=== PATIENT | male | born 1960 | race Caucasian/White ===

== ENCOUNTER 2019-01-16 14:13 | Inpatient (IN) ==
[2019-01-16 15:16] LABS: Baso % (Auto) 0.3 % (0.0-2.0); Eos # (Auto) 0.1 th/mm3 (0.0-0.4); Eos % (Auto) 1.4 % (0.0-4.0); Hematocrit 36.7 % (39.0-51.0); Lymph # (Auto) 1.6 th/mm3 (1.0-4.8); Lymph % (Auto) 20.8 % (9.0-44.0); Mean Corpuscular HGB Conc 32.6 % (32.0-36.0); Mean Corpuscular Hemoglobin 31.4 pg (27.0-34.0); Mean Corpuscular Volume 96.2 fL (80.0-100.0); Mean Platelet Volume 8.2 fL (7.0-11.0); Mono # (Auto) 0.8 th/mm3 (0.0-0.9); Mono % (Auto) 10.3 % (0.0-8.0); Neut # (Auto) 5.1 th/mm3 (1.8-7.7); Neut % (Auto) 67.2 % (16.0-70.0); Platelet Count 248 th/mm3 (150-450); Red Blood Count 3.82 mil/mm3 (4.50-5.90); Red Cell Distribution Width 16.2 % (11.6-17.2); White Blood Count 7.6 th/mm3 (4.0-11.0)
[2019-01-16 15:24] LABS: Activated Partial Thrombo Time 28.9 sec (23.4-31.7); INR 1.1 Ratio; Prothrombin Time 11.6 sec (9.8-11.6)
[2019-01-16 15:41] LABS: Alanine Aminotransferase 11 U/L (12-78); Alkaline Phosphatase 75 U/L (45-117); Total Protein 7.8 g/dL (6.4-8.2)
[2019-01-16 15:46] LABS: Albumin 3.3 g/dL (3.4-5.0); Anion Gap 12 meq/L (5-15); Aspartate Aminotransferase 22 U/L (15-37); Blood Urea Nitrogen 12 mg/dL (7-18); Calcium 7.8 mg/dL (8.5-10.1); Carbon Dioxide 24.2 meq/L (21.0-32.0); Chloride 101 meq/L (98-107); Glomerular Filtration Rate 84 mL/min (>89); Glucose,Random 73 mg/dL (74-106); Lipase 282 U/L (73-393); Magnesium 1.1 mg/dL (1.5-2.5); Potassium 3.7 meq/L (3.5-5.1); Sodium 137 meq/L (136-145)
[2019-01-16 15:49] LABS: Alcohol 193 mg/dL (0-5)
--- NOTE | 2019-01-16 15:54 | XR ---
EXAM DATE: 01/16/2019 3:50 PM EST AGE/SEX: 58 years / Male INDICATIONS: Chest Pain CLINICAL DATA: This is the patient's initial encounter. Patient reports that signs and symptoms have been present for 1 day and indicates a pain score of 4/10. MEDICAL/SURGICAL HISTORY: None. None. COMPARISON: [facility] [place], CHEST 1V SINGLE AP, 12/20/2018. [facility] [place], CT CHEST W CONTRAST, 12/20/2018. . FINDINGS: A single AP view of the chest demonstrates biapical densities with cavitation. Lower lobes are clear. Heart normal in size The cardiomediastinal contours are unremarkable. Osseous structures are intact . CONCLUSION: Chronic appearing bilateral upper lobe cavitary densities greater in the right apex but unchanged. Electronically signed by: Juan Lau MD Board Certified Radiologist 01/16/2019 3:53 PM EST
--- NOTE | 2019-01-16 16:07 | ECG ---
Date Performed: 01/16/2019 Time Performed: 14:37:44 PTAGE: 58 years EKG: ATRIAL FIBRILLATION WITH RAPID VENTRICULAR RESPONSE POSSIBLE RIGHT VENTRICULAR CONDUCTION D ELAY ABNORMAL RHYTHM ECG Compared to prior electrocardiogram, R wave progression has normalized. PREVIOUS TRACING : 12/28/2018 16.10 DOCTOR: João Davis Interpretating Date/Time 01/16/2019 16:06:19
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
--- NOTE | 2019-01-16 16:51 | CT ---
EXAM DATE: 01/16/2019 4:43 PM EST AGE/SEX: 58 years / Male INDICATIONS: Diffuse abdomen pain today. CLINICAL DATA: This is the patient's initial encounter. Patient reports that signs and symptoms have been present for 1 day and indicates a pain score of 7/10. MEDICAL/SURGICAL HISTORY: Chronic obstructive pulmonary disease. . hernia repair ORAL CONTRAST: No oral contrast ingested. RADIATION DOSE: 5.29 CTDI (mGy) COMPARISON: [facility] [place], CT PELVIS W/O CONTRAST, 12/23/2018. . TECHNIQUE: Multiple contiguous axial images were obtained through the abdomen and pelvis following b olus infusion of 96 ml Omnipaque 350 (iohexol) nonionic water-soluble contrast as a single exam dos e. No oral contrast ingested. Using automated exposure control and adjustment of the mA and/or kV ac cording to patient size, radiation dose was kept as low as reasonably achievable to obtain optimal di agnostic quality images. DICOM format image data is available electronically for review and comparis on. FINDINGS: Lower Lungs: The visualized lower lungs are clear. Liver: The liver has a homogeneous density without space-occupying lesion. There is no dilation of th e biliary tree. Spleen: Homogeneous density without enlargement. Pancreas: Unremarkable without mass or calcification. Kidneys: Normal in size and shape. No evidence of mass or hydronephrosis. Bilateral renal low-densit ies likely cysts. Adrenal Glands: Unremarkable. Aorta: Atherosclerotic changes without aneurysmal dilation. Bowel/Mesentery: Wall thickening and slight inflammatory changes of the rectosigmoid colon. Small ap parent tract between the sigmoid colon and urinary bladder with some air seen. There is scattered div erticulosis. Abdominal Wall: Mesh placement. No hernia along the anterior abdominal wall. Retroperitoneum: No evidence of adenopathy in the retrocrural, para-aortic, or deep pelvic regions. Bladder: Distended urinary bladder with posterior wall thickening. Reproductive Organs: No abnormal masses or calcifications seen. Inguinal: The inguinal region is unremarkable without evidence of adenopathy. Bony Structures: Unremarkable. CONCLUSION: 1. Distended urinary bladder with wall thickening posteriorly. 2. Inflammatory changes involving the sigmoid colon with possible fistula between the sigmoid colon and urinary bladder. 3. Bilateral renal cysts. Electronically signed by: Juan Lau MD Board Certified Radiologist 01/16/2019 4:49 PM EST
[2019-01-16] MEDS ORDERED: Piperacil/Tazo 3.375 GM Premix 3.375 GM/50 ML PIGGYBACK IV.SIG ONE (17:34)
[2019-01-16] MEDS ORDERED: Acetaminophen 325 MG Tablet PO PRN (17:42)
[2019-01-16] MEDS ORDERED: Bisacodyl 10 MG Supp RECTAL PRN (17:42)
[2019-01-16 18:00] LABS: Bilirubin,Urine Negative (Negative); Clarity,Urine Clear (Clear); Color,Urine Straw (Yellw/Straw); Glucose,Urine (UA) Negative (Negative); Leukocyte Esterase,Urine Negative (Negative); Nitrite,Urine Negative (Negative); Specific Gravity,Urine 1.006 (1.002-1.035)
[2019-01-16] MEDS ORDERED: Haloperidol Inj 5 MG/ML Ampul IV.PUSH PRN (18:13)
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
[2019-01-16] MEDS: Sod Chloride 0.9% Inj 1,000 ML IV.CONT SCH ×2 (18:20→20:48)
[2019-01-16] MEDS: Enoxaparin Inj 40 MG/0.4 ML Syringe SQ SCH (18:52)
[2019-01-16] MEDS ORDERED: Mag Sulf 1 gm/100 ml Premix 100 ML IV.SIG ONE (19:00)
[2019-01-16] MEDS ORDERED: Mag Sulf 1 gm/100 ml Premix 100 ML IV.SIG SCH (20:00)
[2019-01-16] MEDS: Morphine Inj 4 MG/ML Vial IV.PUSH PRN (20:42)
[2019-01-16] MEDS: Metoprolol Tartrate 25 MG Tablet PO SCH (20:43)
[2019-01-16] MEDS: Senna/Docusate Sodium 8.6/50 MG Tablet PO SCH (22:40)
[2019-01-17] MEDS: Piperacil/Tazo 3.375 GM Premix 3.375 GM/50 ML PIGGYBACK IV.SIG SCH ×4 (00:31→18:10)
[2019-01-17] MEDS: Morphine Inj 4 MG/ML Vial IV.PUSH PRN ×3 (03:47→18:03)
[2019-01-17] MEDS: Sod Chloride 0.9% Inj 1,000 ML IV.CONT SCH ×2 (06:12→15:31)
[2019-01-17 08:14] LABS: Baso # (Auto) 0.1 th/mm3 (0.0-0.2); Baso % (Auto) 1.3 % (0.0-2.0); Eos # (Auto) 0.4 th/mm3 (0.0-0.4); Eos % (Auto) 3.5 % (0.0-4.0); Hematocrit 38.9 % (39.0-51.0); Hemoglobin 13.2 gm/dL (13.0-17.0); Lymph # (Auto) 1.9 th/mm3 (1.0-4.8); Lymph % (Auto) 18.7 % (9.0-44.0); Mean Corpuscular HGB Conc 33.9 % (32.0-36.0); Mean Corpuscular Hemoglobin 32.1 pg (27.0-34.0); Mean Corpuscular Volume 94.6 fL (80.0-100.0); Mean Platelet Volume 8.7 fL (7.0-11.0); Mono % (Auto) 9.5 % (0.0-8.0); Neut # (Auto) 6.8 th/mm3 (1.8-7.7); Platelet Count 219 th/mm3 (150-450); Red Blood Count 4.12 mil/mm3 (4.50-5.90); Red Cell Distribution Width 15.8 % (11.6-17.2); White Blood Count 10.2 th/mm3 (4.0-11.0)
[2019-01-17 08:33] LABS: Anion Gap 8 meq/L (5-15); Blood Urea Nitrogen 11 mg/dL (7-18); Calcium 7.6 mg/dL (8.5-10.1); Carbon Dioxide 27.2 meq/L (21.0-32.0); Chloride 104 meq/L (98-107); Glomerular Filtration Rate Greater Than 89 mL/min (>89); Glucose,Random 79 mg/dL (74-106); Magnesium 1.4 mg/dL (1.5-2.5); Potassium 3.4 meq/L (3.5-5.1); Sodium 139 meq/L (136-145)
[2019-01-17] MEDS: Metoprolol Tartrate 25 MG Tablet PO SCH ×2 (09:13→20:32)
[2019-01-17] MEDS: Senna/Docusate Sodium 8.6/50 MG Tablet PO SCH ×2 (09:13→20:32)
[2019-01-17] MEDS: Lisinopril 20 MG Tablet PO SCH (09:13)
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
[2019-01-17] MEDS ORDERED: Mag Sulf 1 gm/100 ml Premix 100 ML IV.SIG ONE (10:15)
--- NOTE | 2019-01-17 10:23 | P.PNCS ---
Subjective Interval history: Diverticulitis with possible colovesical fistula painful Objective Result Diagrams: 01/17/19 07:30 01/17/19 07:30 Objective Remarks: Abdomen soft, nondistended, mild diffuse tenderness Assessment and Plan - Assessment (1) Diverticulitis Code(s): K57.92 - Diverticulitis of intestine, part unspecified, without perforation or abscess without bleeding Status: Acute - Plan Consult dictated and on chart Patient needs to be set up for acute treatment of his diverticulitis He will likely need interval colectomy in 8-12 weeks If however, he is not able to complete acute treatment and needs more urgent surgery, I will not be able to complete this in a minimally invasive fashion and he will most likely need a temporary colostomy with second surgery for reanastomosis. I will follow along with you while patient is hospitalized and see him in the office after discharge.
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
[2019-01-17] MEDS: LORazepam 1 MG Tablet PO PRN (15:30)
[2019-01-17] MEDS: Enoxaparin Inj 40 MG/0.4 ML Syringe SQ SCH (18:06)
[2019-01-18] MEDS: Morphine Inj 4 MG/ML Vial IV.PUSH PRN ×5 (00:17→23:02)
[2019-01-18] MEDS: Piperacil/Tazo 3.375 GM Premix 3.375 GM/50 ML PIGGYBACK IV.SIG SCH ×5 (00:19→23:47)
[2019-01-18] MEDS: Sod Chloride 0.9% Inj 1,000 ML IV.CONT SCH ×4 (00:31→23:47)
[2019-01-18] MEDS: Senna/Docusate Sodium 8.6/50 MG Tablet PO SCH ×2 (09:12→20:08)
[2019-01-18] MEDS: LORazepam 1 MG Tablet PO PRN (09:12)
[2019-01-18] MEDS: Metoprolol Tartrate 25 MG Tablet PO SCH ×2 (09:12→20:00)
[2019-01-18] MEDS: Lisinopril 20 MG Tablet PO SCH (09:12)
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
[2019-01-18] MEDS ORDERED: Potassium Chloride 10 MEQ ER Capsule PO ONE (14:25)
[2019-01-18] MEDS: Magnesium Oxide 400 MG Tablet PO SCH (14:51)
[2019-01-18] MEDS: Enoxaparin Inj 40 MG/0.4 ML Syringe SQ SCH (17:26)
[2019-01-19] MEDS: Morphine Inj 4 MG/ML Vial IV.PUSH PRN ×2 (04:34→20:14)
[2019-01-19] MEDS: Piperacil/Tazo 3.375 GM Premix 3.375 GM/50 ML PIGGYBACK IV.SIG SCH ×3 (05:06→18:21)
[2019-01-19] MEDS: Sod Chloride 0.9% Inj 1,000 ML IV.CONT SCH (05:55)
[2019-01-19] MEDS: LORazepam 1 MG Tablet PO PRN ×2 (08:53→18:22)
[2019-01-19] MEDS: Magnesium Oxide 400 MG Tablet PO SCH (08:56)
[2019-01-19] MEDS: Senna/Docusate Sodium 8.6/50 MG Tablet PO SCH ×2 (08:56→20:14)
[2019-01-19] MEDS: Lisinopril 20 MG Tablet PO SCH (08:56)
[2019-01-19] MEDS: Metoprolol Tartrate 25 MG Tablet PO SCH (08:56)
[2019-01-19 09:08] LABS: Baso % (Auto) 0.5 % (0.0-2.0); Eos # (Auto) 0.5 th/mm3 (0.0-0.4); Eos % (Auto) 6.1 % (0.0-4.0); Hematocrit 34.4 % (39.0-51.0); Hemoglobin 11.4 gm/dL (13.0-17.0); Lymph # (Auto) 1.5 th/mm3 (1.0-4.8); Lymph % (Auto) 18.6 % (9.0-44.0); Mean Corpuscular Hemoglobin 32.4 pg (27.0-34.0); Mean Platelet Volume 9.2 fL (7.0-11.0); Mono # (Auto) 0.8 th/mm3 (0.0-0.9); Mono % (Auto) 9.4 % (0.0-8.0); Neut # (Auto) 5.4 th/mm3 (1.8-7.7); Neut % (Auto) 65.4 % (16.0-70.0); Platelet Count 149 th/mm3 (150-450); Red Blood Count 3.51 mil/mm3 (4.50-5.90); White Blood Count 8.2 th/mm3 (4.0-11.0)
[2019-01-19 09:37] LABS: Alanine Aminotransferase 9 U/L (12-78); Albumin 2.8 g/dL (3.4-5.0); Anion Gap 10 meq/L (5-15); Aspartate Aminotransferase 11 U/L (15-37); Blood Urea Nitrogen 10 mg/dL (7-18); Calcium 7.9 mg/dL (8.5-10.1); Carbon Dioxide 24.2 meq/L (21.0-32.0); Chloride 107 meq/L (98-107); Glomerular Filtration Rate 86 mL/min (>89); Glucose,Random 76 mg/dL (74-106); Magnesium 1.2 mg/dL (1.5-2.5); Potassium 3.2 meq/L (3.5-5.1); Sodium 141 meq/L (136-145)
[2019-01-19 09:40] LABS: Alkaline Phosphatase 54 U/L (45-117); Total Protein 7.2 g/dL (6.4-8.2)
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
[2019-01-19] MEDS: Metoprolol Tartrate 50 MG Tablet PO SCH (16:05)
[2019-01-19] MEDS: Enoxaparin Inj 40 MG/0.4 ML Syringe SQ SCH (18:20)
[2019-01-20] MEDS: LORazepam 1 MG Tablet PO PRN ×4 (00:22→22:49)
[2019-01-20] MEDS: Piperacil/Tazo 3.375 GM Premix 3.375 GM/50 ML PIGGYBACK IV.SIG SCH ×2 (00:22→05:03)
[2019-01-20] MEDS: Sod Chloride 0.9% Inj 1,000 ML IV.CONT SCH ×2 (00:22→02:29)
[2019-01-20] MEDS: Morphine Inj 4 MG/ML Vial IV.PUSH PRN (03:06)
[2019-01-20] MEDS: Metoprolol Tartrate 50 MG Tablet PO SCH ×3 (09:00→17:13)
[2019-01-20] MEDS: Magnesium Oxide 400 MG Tablet PO SCH (09:00)
[2019-01-20] MEDS: Lisinopril 20 MG Tablet PO SCH (09:00)
[2019-01-20] MEDS: Senna/Docusate Sodium 8.6/50 MG Tablet PO SCH ×2 (09:00→20:27)
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
[2019-01-20 09:22] LABS: Baso # (Auto) 0.1 th/mm3 (0.0-0.2); Baso % (Auto) 0.7 % (0.0-2.0); Eos # (Auto) 0.5 th/mm3 (0.0-0.4); Eos % (Auto) 4.9 % (0.0-4.0); Hematocrit 36.2 % (39.0-51.0); Hemoglobin 11.9 gm/dL (13.0-17.0); Lymph # (Auto) 1.6 th/mm3 (1.0-4.8); Lymph % (Auto) 17.2 % (9.0-44.0); Mean Corpuscular HGB Conc 32.8 % (32.0-36.0); Mean Corpuscular Hemoglobin 31.8 pg (27.0-34.0); Mean Corpuscular Volume 97.1 fL (80.0-100.0); Mean Platelet Volume 9.1 fL (7.0-11.0); Mono # (Auto) 0.8 th/mm3 (0.0-0.9); Mono % (Auto) 8.9 % (0.0-8.0); Neut # (Auto) 6.4 th/mm3 (1.8-7.7); Neut % (Auto) 68.3 % (16.0-70.0); Platelet Count 149 th/mm3 (150-450); Red Blood Count 3.73 mil/mm3 (4.50-5.90); Red Cell Distribution Width 15.9 % (11.6-17.2); White Blood Count 9.4 th/mm3 (4.0-11.0)
[2019-01-20 09:50] LABS: Albumin 2.8 g/dL (3.4-5.0); Anion Gap 12 meq/L (5-15); Aspartate Aminotransferase 10 U/L (15-37); Blood Urea Nitrogen 9 mg/dL (7-18); Calcium 8.4 mg/dL (8.5-10.1); Carbon Dioxide 24.5 meq/L (21.0-32.0); Chloride 106 meq/L (98-107); Glomerular Filtration Rate 83 mL/min (>89); Glucose,Random 70 mg/dL (74-106); Potassium 3.3 meq/L (3.5-5.1); Sodium 142 meq/L (136-145)
[2019-01-20 09:51] LABS: Alanine Aminotransferase 9 U/L (12-78)
[2019-01-20 09:53] LABS: Alkaline Phosphatase 49 U/L (45-117); Total Protein 7.3 g/dL (6.4-8.2)
[2019-01-20] MEDS: Ciprofloxacin 500 MG Tablet PO SCH ×2 (11:38→20:26)
[2019-01-20] MEDS: chlordiazePOXIDE 25 MG Capsule PO SCH ×3 (11:38→17:13)
[2019-01-20] MEDS: Amoxicillin/Clavulanate 500/125 MG Tablet PO SCH ×4 (12:33→22:55)
[2019-01-20] MEDS: Enoxaparin Inj 40 MG/0.4 ML Syringe SQ SCH (17:13)
[2019-01-21] MEDS: Amoxicillin/Clavulanate 500/125 MG Tablet PO SCH ×3 (05:36→21:27)
[2019-01-21] MEDS: Ciprofloxacin 500 MG Tablet PO SCH ×2 (08:22→21:27)
[2019-01-21] MEDS: Lisinopril 20 MG Tablet PO SCH (08:22)
[2019-01-21] MEDS: chlordiazePOXIDE 25 MG Capsule PO SCH ×3 (08:22→17:14)
[2019-01-21] MEDS: Senna/Docusate Sodium 8.6/50 MG Tablet PO SCH ×2 (08:23→23:25)
[2019-01-21] MEDS: Magnesium Oxide 400 MG Tablet PO SCH (08:45)
[2019-01-21] MEDS: Metoprolol Tartrate 50 MG Tablet PO SCH ×3 (08:45→17:14)
[2019-01-21 09:55] LABS: Baso # (Auto) 0.1 th/mm3 (0.0-0.2); Baso % (Auto) 0.8 % (0.0-2.0); Eos # (Auto) 0.4 th/mm3 (0.0-0.4); Eos % (Auto) 6.7 % (0.0-4.0); Hematocrit 38.2 % (39.0-51.0); Hemoglobin 12.4 gm/dL (13.0-17.0); Lymph # (Auto) 1.8 th/mm3 (1.0-4.8); Lymph % (Auto) 28.1 % (9.0-44.0); Mean Corpuscular HGB Conc 32.4 % (32.0-36.0); Mean Corpuscular Hemoglobin 31.7 pg (27.0-34.0); Mean Corpuscular Volume 97.8 fL (80.0-100.0); Mean Platelet Volume 9.1 fL (7.0-11.0); Mono # (Auto) 0.8 th/mm3 (0.0-0.9); Mono % (Auto) 13.1 % (0.0-8.0); Neut # (Auto) 3.2 th/mm3 (1.8-7.7); Neut % (Auto) 51.3 % (16.0-70.0); Platelet Count 150 th/mm3 (150-450); Red Blood Count 3.91 mil/mm3 (4.50-5.90); Red Cell Distribution Width 16.1 % (11.6-17.2); White Blood Count 6.3 th/mm3 (4.0-11.0)
[2019-01-21 10:07] LABS: Albumin 2.9 g/dL (3.4-5.0); Anion Gap 9 meq/L (5-15); Aspartate Aminotransferase 11 U/L (15-37); Blood Urea Nitrogen 10 mg/dL (7-18); Calcium 8.8 mg/dL (8.5-10.1); Carbon Dioxide 25.6 meq/L (21.0-32.0); Chloride 105 meq/L (98-107); Glomerular Filtration Rate 86 mL/min (>89); Glucose,Random 68 mg/dL (74-106); Potassium 3.4 meq/L (3.5-5.1); Sodium 140 meq/L (136-145)
[2019-01-21 10:08] LABS: Alanine Aminotransferase 9 U/L (12-78)
[2019-01-21 10:10] LABS: Alkaline Phosphatase 51 U/L (45-117); Total Protein 7.5 g/dL (6.4-8.2)
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
[2019-01-21] MEDS ORDERED: Potassium Chloride 25 MEQ Effervescent Tablet PO ONE (16:45)
[2019-01-21] MEDS: Enoxaparin Inj 40 MG/0.4 ML Syringe SQ SCH (17:15)
[2019-01-21] MEDS: LORazepam 1 MG Tablet PO PRN (23:32)
[2019-01-22] MEDS: LORazepam 1 MG Tablet PO PRN ×2 (04:16→08:54)
[2019-01-22] MEDS: Amoxicillin/Clavulanate 500/125 MG Tablet PO SCH ×3 (05:09→21:17)
[2019-01-22] MEDS: Ciprofloxacin 500 MG Tablet PO SCH ×2 (08:55→21:17)
[2019-01-22] MEDS: Lisinopril 20 MG Tablet PO SCH (08:55)
[2019-01-22] MEDS: Metoprolol Tartrate 50 MG Tablet PO SCH ×3 (08:55→17:15)
[2019-01-22] MEDS: chlordiazePOXIDE 25 MG Capsule PO SCH ×3 (08:55→19:12)
[2019-01-22] MEDS: Senna/Docusate Sodium 8.6/50 MG Tablet PO SCH ×2 (09:00→20:51)
[2019-01-22 10:13] LABS: Alanine Aminotransferase 11 U/L (12-78); Albumin 2.8 g/dL (3.4-5.0); Anion Gap 7 meq/L (5-15); Aspartate Aminotransferase 21 U/L (15-37); Blood Urea Nitrogen 16 mg/dL (7-18); Calcium 8.6 mg/dL (8.5-10.1); Carbon Dioxide 24.6 meq/L (21.0-32.0); Chloride 106 meq/L (98-107); Glomerular Filtration Rate 86 mL/min (>89); Glucose,Random 68 mg/dL (74-106); Potassium 4.2 meq/L (3.5-5.1); Sodium 138 meq/L (136-145)
[2019-01-22 10:19] LABS: Alkaline Phosphatase 44 U/L (45-117); Total Protein 7.1 g/dL (6.4-8.2)
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
[2019-01-22] MEDS: Enoxaparin Inj 40 MG/0.4 ML Syringe SQ SCH (17:16)
[2019-01-22] MEDS ORDERED: LORazepam 0.5 MG Tablet PO ONE (22:14)
[2019-01-23] MEDS: Amoxicillin/Clavulanate 500/125 MG Tablet PO SCH ×3 (05:34→21:18)
[2019-01-23 07:43] LABS: Albumin 2.7 g/dL (3.4-5.0); Anion Gap 9 meq/L (5-15); Aspartate Aminotransferase 13 U/L (15-37); Blood Urea Nitrogen 19 mg/dL (7-18); Calcium 8.8 mg/dL (8.5-10.1); Carbon Dioxide 21.7 meq/L (21.0-32.0); Chloride 107 meq/L (98-107); Glomerular Filtration Rate 77 mL/min (>89); Glucose,Random 79 mg/dL (74-106); Potassium 3.9 meq/L (3.5-5.1); Sodium 138 meq/L (136-145)
[2019-01-23 07:44] LABS: Alanine Aminotransferase 11 U/L (12-78)
[2019-01-23 07:46] LABS: Alkaline Phosphatase 48 U/L (45-117); Total Protein 6.9 g/dL (6.4-8.2)
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
[2019-01-23] MEDS: Metoprolol Tartrate 50 MG Tablet PO SCH ×3 (08:34→18:51)
[2019-01-23] MEDS: Ciprofloxacin 500 MG Tablet PO SCH ×2 (08:34→21:18)
[2019-01-23] MEDS: chlordiazePOXIDE 25 MG Capsule PO SCH ×2 (08:35→21:18)
[2019-01-23] MEDS: Lisinopril 20 MG Tablet PO SCH (08:35)
[2019-01-23] MEDS: Senna/Docusate Sodium 8.6/50 MG Tablet PO SCH ×2 (08:37→21:19)
[2019-01-23] MEDS: Enoxaparin Inj 40 MG/0.4 ML Syringe SQ SCH (18:52)
[2019-01-24] MEDS: Amoxicillin/Clavulanate 500/125 MG Tablet PO SCH ×3 (05:04→22:18)
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
[2019-01-24] MEDS: chlordiazePOXIDE 25 MG Capsule PO SCH ×2 (08:45→20:20)
[2019-01-24] MEDS: Metoprolol Tartrate 50 MG Tablet PO SCH ×3 (08:46→18:02)
[2019-01-24] MEDS: Ciprofloxacin 500 MG Tablet PO SCH ×2 (08:46→20:20)
[2019-01-24] MEDS: Senna/Docusate Sodium 8.6/50 MG Tablet PO SCH ×2 (08:47→20:21)
[2019-01-24] MEDS: Lisinopril 20 MG Tablet PO SCH (08:48)
[2019-01-24] MEDS ORDERED: Lisinopril 20 MG Tablet PO SCH (09:00)
[2019-01-24] MEDS: Enoxaparin Inj 40 MG/0.4 ML Syringe SQ SCH (18:02)
[2019-01-25] MEDS: Amoxicillin/Clavulanate 500/125 MG Tablet PO SCH ×3 (06:04→21:59)
[2019-01-25] MEDS: Ciprofloxacin 500 MG Tablet PO SCH ×2 (08:46→21:59)
[2019-01-25] MEDS: Lisinopril 20 MG Tablet PO SCH (08:47)
[2019-01-25] MEDS: chlordiazePOXIDE 25 MG Capsule PO SCH (08:47)
[2019-01-25] MEDS: Metoprolol Tartrate 50 MG Tablet PO SCH ×3 (08:47→20:00)
[2019-01-25] MEDS: Senna/Docusate Sodium 8.6/50 MG Tablet PO SCH ×2 (08:47→21:59)
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
[2019-01-25] MEDS: Enoxaparin Inj 40 MG/0.4 ML Syringe SQ SCH (20:00)
[2019-01-26] MEDS: Amoxicillin/Clavulanate 500/125 MG Tablet PO SCH ×4 (06:24→21:00)
--- NOTE | 2019-01-26 08:48 | P.DCO ---
Physical Therapy Order: Evaluate and treat, Improve ambulation and Strength and gait training Home Health Nursing Order: Medical education and Nursing assessment with vital signs Case Management Consult Case Management Consult-Home Health: Yes I have seen patient Vinny Landa on 01/26/19. My clinical findings support the need for the requested home health care services because: Limited mobility due to disease progression, Deconditioned with increased weakness, Limited ability to care for self and Infection with risk of complications I certify that my clinical findings support that this patient is homebound because: Unsteady gait/balance, Unsafe to leave home unassisted and Unable to use public transportation
[2019-01-26] MEDS: Senna/Docusate Sodium 8.6/50 MG Tablet PO SCH ×2 (09:21→20:55)
[2019-01-26] MEDS: Metoprolol Tartrate 50 MG Tablet PO SCH ×3 (09:21→17:44)
[2019-01-26] MEDS: Lisinopril 20 MG Tablet PO SCH (09:23)
[2019-01-26] MEDS: Ciprofloxacin 500 MG Tablet PO SCH ×2 (09:23→20:54)
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
[2019-01-26] MEDS: Enoxaparin Inj 40 MG/0.4 ML Syringe SQ SCH (17:43)
[2019-01-27 05:14] VITALS: O2SAT 99
[2019-01-27] MEDS: Amoxicillin/Clavulanate 500/125 MG Tablet PO SCH ×3 (05:14→14:09)
[2019-01-27] MEDS: Ciprofloxacin 500 MG Tablet PO SCH (09:56)
[2019-01-27] MEDS: Metoprolol Tartrate 50 MG Tablet PO SCH ×2 (09:56→12:52)
[2019-01-27] MEDS: Senna/Docusate Sodium 8.6/50 MG Tablet PO SCH (09:56)
[2019-01-27] MEDS: Lisinopril 20 MG Tablet PO SCH (09:57)
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
[2019-01-27 16:50] VITALS: BP 100/62; RESP 14; TEMP 97.5
[2019-01-27 17:03] VITALS: PULSE 79
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
== END 2019-01-27 17:50 | DRG 698 ==
LOC: NEPC 14:13 → NEDA 14:13 → NEPFCDU 19:50 → H7ONC 01-17 21:25
PROVIDERS: ADMIT Hospitalist; ATTEND Hospitalist
CPT/HCPCS: 71010; 71045; 74177; 76937; 80048; 80053; 80307; 81001; 82550; 83690; 83735; 84484; 85025; 85610; 85730; 93005; 94640; 94665; 96361; 96365; 96366; 96367; 96372; 96375; 97110; 97116; 97161; 99285; G0378; J1650; J2060; J2270; J2543; J3475; J7030; Q9967